=== PATIENT | female | born 1950 | race Hispanic/Latino ===

== ENCOUNTER → 2020-10-30 | Day surgery (SDC) | payer MEDICARE ==
[2020-10-27 12:50] LABS: BASOPHILS % 0.4 % (0.0-1.0); EOSINOPHILS # (AUTO) 0.2 (0.0-0.4); EOSINOPHILS % 2.3 % (0.0-6.0); HEMATOCRIT 27.2 % (34.2-44.1); LYMPHOCYTES # (AUTO) 1.1 (1.0-3.2); LYMPHOCYTES % 13.9 % (18.0-39.1); MEAN CORPUSCULAR HEMOGLOBIN 30.2 pg (28-32); MEAN CORPUSCULAR HGB CONC 33.1 g/dL (31-35); MEAN CORPUSCULAR VOLUME 91.3 fL (81-99); MONOCYTES # (AUTO) 0.6 (0.2-0.8); MONOCYTES % 7.5 % (4.4-11.3); PLATELET COUNT 199 x10e3/uL (140-360); RED BLOOD COUNT 2.98 x10e6/uL (3.6-5.1)
[2020-10-27 13:17] LABS: ALBUMIN 3.4 g/dL (3.5-5.0); ALBUMIN/GLOBULIN RATIO 1.1 (0.8-2.0); ANION GAP 14.6 mmol/L (8-16); CREATININE, SERUM 2.37 mg/dL (0.57-1.11); POTASSIUM 3.6 mmol/L (3.5-5.1)
[~2020-10-30] VITALS: Ht 152.4 cm; Wt 64.9 kg
[~2020-10-30] MED LIST: AMLODIPINE BESYL5 MG PO; ASPIRIN 325 MG TAB ONE; ASPIRIN81 MG PO; ATORVASTATIN CA20 MG PO; BASAGLAR K100 UNIT/1 SC; BIVALRIUDIN 250 MG/VIAL VIAL IV ONE; CALCITRIOL0.25 MCG PO; CLOPIDOGREL75 MG PO; DOXAZOSIN MESYLA4 MG PO; FENTANYL CITRATE/PF 100MCG/2 ML INJ ONE; HEPARIN SOD (PORCINE) 1000 UNIT/ML 30ML ONE; HEPARIN SOD/SOD CHLORIDE 2,000 ML ONE; HYDRALAZINE HCL 20 MG/ML VIAL ONE; IOPAMIDOL 370 MG/ML 200 ML INFUS..BTL INJ ONE; LATANOPROST2.5 ML OP; LIDOCAINE HCL 2% LOCAL 20 ML VIAL ONE; LOSARTAN POTAS100 MG PO; METOPROLOL SUCC50 MG PO; MIDAZOLAM HCL 2 MG/2 ML VIAL ONE; NEPHRO-VITE TABL1 EA PO; NITROGLYCERIN/D5W 200 MCG/ML 250 ML ONE; PRASUGREL 10 MG TAB ONE; PREDNISOLO15 MG/5 ML OP; RENAGEL800 MG PO; SODIUM CHLORIDE 0.9% 1000ML 1,000 ML ONE; SODIUM CHLORIDE 0.9% 50ML 50 ML ONE; VITAMIN D325 MCG PO
[2020-10-30 07:08] VITALS: BP 207/75
[2020-10-30 08:30] VITALS: BP 130/45
[2020-10-30 08:45] VITALS: BP 131/46
[2020-10-30 09:00] VITALS: BP 130/41
[2020-10-30 09:15] VITALS: BP 152/57
[2020-10-30 09:30] VITALS: BP 152/77
== END | disposition home or self-care (01) ==
LOC: CATH LAB 06:30
PROVIDERS: ATTEND Internal Medicine Interventional Cardiology
DX: I25.708 Atherosclerosis of coronary artery bypass graft(s), unspecified, with other forms of angina pectoris (principal); R94.39 Abnormal result of other cardiovascular function study; I48.91 Unspecified atrial fibrillation; I25.2 Old myocardial infarction; E11.22 Type 2 diabetes mellitus with diabetic chronic kidney disease; I13.0 Hypertensive heart and chronic kidney disease with heart failure and stage 1 through stage 4 chronic kidney disease, or unspecified chronic kidney disease; N18.4 Chronic kidney disease, stage 4 (severe); I50.20 Unspecified systolic (congestive) heart failure; E11.59 Type 2 diabetes mellitus with other circulatory complications; Z88.6 Allergy status to analgesic agent; Z88.0 Allergy status to penicillin; Z01.812 Encounter for preprocedural laboratory examination; Z20.822 Contact with and (suspected) exposure to COVID-19; Z79.4 Long term (current) use of insulin; Z79.02 Long term (current) use of antithrombotics/antiplatelets; Z79.82 Long term (current) use of aspirin; Z99.2 Dependence on renal dialysis; Z95.5 Presence of coronary angioplasty implant and graft; Z95.1 Presence of aortocoronary bypass graft; Z95.0 Presence of cardiac pacemaker; Z82.49 Family history of ischemic heart disease and other diseases of the circulatory system
CPT/HCPCS: 36415; 76937; 80053; 85025; 93455; C1760; C1769; J0360; J2001; J2250; J3010; J7030; Q9967; U0002; 99152; J0583; J1644